=== PATIENT | female | born 1930 | race Hispanic/Latino ===

== ENCOUNTER 2016-06-26 12:26 | Emergency (ER) | payer MEDICARE, BC ==
[2016-06-26 12:39] VITALS: BP 161/60
--- OUTSIDE RECORDS SUMMARY | 2016-06-26 12:51 | XMS REPORT | Continuity of Care Document ---
:1930 Author Organization [facility] ([facility] Address [address] [place] [address] Phone [phone] Care Team Providers Name Role Phone Rosita Esparza Primary Care Provider [phone] Source Comments This disclosure is being made pursuant to the Care Everywhere program, applicable federal and state laws, and may not contain all informaitonavailable regarding this patient.[facility] ([facility]) Active Allergies and Adverse Reactions No Active Allergies Current Medications Not on file Active Problems Not on file Social History Tobacco Use Types Packs/Day Years Used Date Never Assessed Last Filed Vital Signs Vital Sign Reading Time Taken Blood Pressure 142/76 11/12/2006 9:43 AM CDT Pulse 64 11/12/2006 9:43 AM CDT Temperature 36.1 C (96.98 F) 09/25/2005 11:59 AM CDT Respiratory Rate 20 11/12/2006 9:43 AM CDT Height 1.57 m (5' 1.81") 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
[2016-06-26 13:14] LABS: Hematocrit 31.5 % (37.0-47.0); Hemoglobin 10.1 gm/dL (12.5-16.0); Mean Cell Volume 91.6 fl (78-100); Mean Corpuscular Hemoglobin 29.4 pg (27-31); Mean Corpuscular Hgb Conc 32.1 g/dl (32-36); Mean Platelet Volume 11.7 fl (6.0-9.5); Neutrophil # 5.5 K/mm3 (1.3-6.0); Neutrophil % 74.9 % (42-75.0); Platelet Count 168 K/mm3 (150-450); Red Blood Count 3.44 M/mm3 (4.2-5.4); Red Cell Distribution Width 14.4 % (11.5-14.0); White Blood Count 7.3 K/mm3 (4.0-10.5)
[2016-06-26 13:28] LABS: Albumin * 3.1 gm/dl (3.4-5.0); Anion Gap 12.6 mmol/L (6.8-13.8); BUN/Creatinine Ratio 17.7 (9.0-21.6); Bilirubin, Total 0.4 mg/dL (0.0-1.1); Ca. Corrected For Albumin 10.2 mg/dL (8.4-10.2); Calcium * 9.8 mg/dL (7.9-10.9); Carbon Dioxide 30.6 mmol/L (24-32.6); Potassium 4.2 mmol/L (3.4-4.6); Total Protein 7.3 gm/dL (6.2-8.2)
--- NOTE | 2016-06-26 13:37 | ERNOTE ---
Lower Extremity HPI - Narrative Date of Service: 06/26/16 - General Lower Extremities Pain: foot: left Time Seen by Provider: 06/26/16 12:43 Source: patient, family, RN notes reviewed, old records Exam Limitations: no limitations - Immun/Allergies/Home Medications Immunizations: IMMUNIZATION HX Immunizations Up to Date Yes History of Influenza Vaccine No Hx Pneumococcal Vaccination No Allergies/Adverse Reactions: Allergies Allergy/AdvReac Type Severity Reaction Status Date / Time acetaminophen [From [place]] AdvReac Verified 08/10/14 17:49 hydrocodone bitartrate AdvReac Verified 08/10/14 17:49 [From [place]] Home Medications: HOME MEDICATIONS Acetaminophen [Acetaminophen Extra Strength] 500 mg PO BID 11/11/13 [Last Taken Unknown] Furosemide [Lasix] 40 mg PO BID 11/11/13 [Last Taken Unknown] Gabapentin 300 mg PO HS 11/11/13 [Last Taken Unknown] Amiodarone HCl [Pacerone] 100 mg PO DAILY 04/07/14 [Last Taken Unknown] Aspirin/Calcium Carbonate/Mag [Aspirin Buffered 325 mg Tab] 325 mg PO DAILY [Last Taken Unknown] Calcium Carb & Citrate/Vit D3 [Calcium + D3 ER Tablet] 1 each PO DAILY 04/07/14 [Last Taken Unknown] Insulin Glargine,Hum.rec.anlog [Lantus] 15 units SQ HS 04/07/14 [Last Taken Unknown] Insulin Lispro [Humalog] 0 - 12 units SQ ACHS PRN 04/07/14 [Last Taken Unknown] Magnesium Hydroxide [Milk Of Magnesia] 30 ml PO BID PRN 04/07/14 [Last Taken Unknown] Potassium Chloride [Klor-Con M20] 20 meq PO BID 04/07/14 [Last Taken Unknown] Polyethylene Glycol 3350 [Miralax] 17 gm PO DAILY PRN 04/08/14 [Last Taken Unknown] Simvastatin [Zocor] 20 mg PO HS 04/08/14 [Last Taken Unknown] Cyanocobalamin [Vitamin B-12] 1,000 mcg PO DAILY #30 tablet 04/09/14 [Last Taken Unknown] Mirtazapine [Mirtazapine (Remeron)] 15 mg PO HS 04/09/14 [Last Taken Unknown] traMADol HCL [Ultram] 50 mg PO BID 11/24/14 [Last Taken Unknown] Famotidine [Pepcid AC] 20 mg PO HS 08/10/14 [Last Taken Unknown] LORazepam [Ativan] 0.25 mg PO HS 08/10/14 [Last Taken Unknown] Metoprolol Tartrate [Lopressor] 25 mg PO BID 08/10/14 [Last Taken Unknown] Sennosides/Docusate Sodium [Senokot-S] 1 tab PO BID 08/10/14 [Last Taken Unknown ] Clindamycin HCl [Cleocin HCl] 300 mg PO QID #40 capsule 06/26/16 [Last Taken Unknown] - History of Present Illness Narrative: Romy is an 85 year old female brought to the ED by a family member for increased swelling in her left for 3 days. She denies any injury, but has a history of a fracture in this foot approximately a year ago. The foot is also sore. She denies any fever, nausea, or malaise. Method of Injury: Reports: no apparent injury Prior Treament: Denies: recently seen, similar symptoms before, currently on antibiotics Review of Systems - Review of Systems Constitutional: Absent: recent illness, fever, chills, malaise EYE: Present: no symptoms reported ENT: Present: no symptoms reported Respiratory: Absent: shortness of breath, cough Cardiology: Present: edema. Absent: chest pain Gastrointestinal/Abdominal: Absent: nausea, vomiting Genitourinary: Present: no symptoms reported Musculoskeletal: Absent: joint pain, joint swelling Skin: Absent: rash, lesions, lumps Neurological: Present: numbness. Absent: headache, dizziness/light-headedness, weakness Endocrine: Present: no symptoms reported Hematologic/Lymphatic: Present: no symptoms reported Psych: Present: no symptoms reported - Patient's Past Medical History Patient History - Medical: Anemia, Chronic Pain, Diabetes Type 2 Insulin Dependent Patient History - Cardiac/Respiratory: Atrial Fibrillation, Coronary Heart Disease, CHF, Hypertension, Hyperlipidemia, Myocardial Infarction Patient History - Cancer: No Hx of Cancer Patient History - Surgical Procedures: Coronary Bypass Surgery, Hysterectomy, Pacemaker, T & A, Other Patient History - Other: None LMP (females 10-50): Menopausal - Social History Living Situations: home Abuse History: No History of abuse Psych History: No pertinent hx Smoking Status: Former smoker Alcohol Use: none Drug Use: none - Immunizations Immunizations Up to Date: Yes Hx Pneumococcal Vaccination: No History of Influenza Vaccine: No Physical Exam - Physical Exam General Appearance: Present: wd/wn, alert, no apparent distress Neck: Present: normal inspection, nontender, supple Respiratory: Present: no respiratory distress, normal breath sounds, no accessory muscle use, lungs clear Cardiovascular/Chest: Present: regular rate, rhythm, no murmur. Absent: normal peripheral pulses Peripheral Pulses: N=norm/S=strong/W=weak/B=bound/A=absent: Dorsalis-pedis (R): Weak, Dorsalis-pedis (L): Weak Extremity Exam: Present: normal range of motion, pedal edema - bilaterally, worse on left, extremity edema - to mid-calf, worse on left, other - left tender coordinator to palpation. Absent: calf tenderness, joint redness, joint swelling Neurological Exam: Present: alert, oriented, normal mood/affect, no motor/ sensory deficits Skin Exam: Present: warm/dry, other - erythema to dorsum of left foot, skin dry and scaley but appears to be intact ED Progress - Results and Orders Patient's Lab Results:: I have reviewed the patient's lab results. - Vital Signs Patient's Vital Signs:: I have reviewed the patient's vital signs. Vital Signs: Vital Signs 06/26/16 12:33 Temperature 36.6 C Pulse Rate 60 Respiratory 16 Rate Blood Pressure 161/60 O2 Sat by Pulse 97 Oximetry - X-Ray X-Ray #1 X-Ray: foot - Left Interpretation: Reviewed by me X-ray Comments: No acute osseous abnormality noted - Progress/Reassessment Chief Complaint: Lower Extremity Pain/ Injury Progress:: Unchanged Departure Clinical Impression: Cellulitis of left foot - Departure Disposition: Home Follow Up Needed Condition: Stable Instructions: Cellulitis, Adult, [id number] Additional Instructions: Elevate foot whenever possible Heat to swollen area may help Continue your current medications Return for fever, vomiting, or other concerns Referrals: Elia Marcos MD [Primary Care Provider] - Prescriptions: Clindamycin HCl [Cleocin HCl] 300 mg PO QID #40 capsule
== END 2016-06-26 14:12 | disposition home or self-care (01) ==
LOC: ER 12:26
DX: L03.116 Cellulitis of left lower limb (principal); Z87.891 Personal history of nicotine dependence

== ENCOUNTER 2016-10-05 12:23 | Observation (INO) | payer MEDICARE, BC ==
--- NOTE | 2016-10-05 12:51 | ERNOTE ---
Medical Problem HPI - Narrative Date of Service: 10/05/16 - General Chief Complaint: General Assessment Time Seen by Provider: 10/05/16 12:48 - Immun/Allergies/Home Medications Immunizations: IMMUNIZATION HX Immunizations Up to Date Yes History of Influenza Vaccine Yes Hx Pneumococcal Vaccination No Allergies/Adverse Reactions: Allergies acetaminophen [From [place]] Adverse Reaction (Verified 10/05/16 12:56) Makes weak, and "tipsy" hydrocodone bitartrate [From [place]] Adverse Reaction (Verified 10/05/16 12:56) Makes weak, and "tipsy" Home Medications: HOME MEDICATIONS Acetaminophen [Acetaminophen Extra Strength] 500 mg PO BID 11/11/13 [Last Taken Unknown] Furosemide [Lasix] 40 mg PO BID 11/11/13 [Last Taken Unknown] Gabapentin 300 mg PO HS 11/11/13 [Last Taken Unknown] Amiodarone HCl [Pacerone] 100 mg PO DAILY 04/07/14 [Last Taken Unknown] Aspirin/Calcium Carbonate/Mag [Aspirin Buffered 325 mg Tab] 325 mg PO DAILY [Last Taken Unknown] Insulin Glargine,Hum.rec.anlog [Lantus] 15 units SQ HS 04/07/14 [Last Taken Unknown] Insulin Lispro [Humalog] 0 - 12 units SQ ACHS PRN 04/07/14 [Last Taken Unknown] Potassium Chloride [Klor-Con M20] 10 meq PO BID 04/07/14 [Last Taken Unknown] Simvastatin [Zocor] 20 mg PO HS 04/08/14 [Last Taken Unknown] Cyanocobalamin [Vitamin B-12] 1,000 mcg PO DAILY #30 tablet 04/09/14 [Last Taken Unknown] Mirtazapine [Mirtazapine (Remeron)] 15 mg PO HS 04/09/14 [Last Taken Unknown] traMADol HCL [Ultram] 50 mg PO Q4H PRN 04/09/14 [Last Taken Unknown] LORazepam [Ativan] 0.25 mg PO HS 08/10/14 [Last Taken Unknown] Metoprolol Tartrate [Lopressor] 25 mg PO BID 08/10/14 [Last Taken Unknown] Sennosides/Docusate Sodium [Senokot-S] 1 tab PO BID 08/10/14 [Last Taken Unknown ] - History of Present History Narrative: Patient reports onset of left arm swelling for 1 day. Daughter reports in family and patient having troubles coping. Daughter reports patient not eating well for past 2 weeks. Daughter reports onset of fruity smelling and cloudy urine. Pt. youngest son on wednesday and she does not want to eat...she is on ativan for her anxiety but nothing for depression. Pt. denies any recent injury. Review of Systems - Review of Systems Constitutional: Present: weakness, fatigue, malaise, decreased activity level. Absent: recent illness, fever, chills, diaphoresis EYE: Present: no symptoms reported ENT: Present: no symptoms reported Respiratory: Present: no symptoms reported. Absent: shortness of breath, cough , wheezing Cardiology: Present: no symptoms reported. Absent: chest pain, palpitations, edema Gastrointestinal/Abdominal: Present: eating less, drinking less. Absent: nausea , vomiting, diarrhea, abdominal pain Genitourinary: Present: no symptoms reported Musculoskeletal: Present: muscle pain - L upper arm L lower arm hand, joint pain - L upper arm including elbow. Absent: back pain Skin: Present: no symptoms reported. Absent: change in color Neurological: Present: anxiety, depressed, emotional problems Endocrine: Present: other - sweet smelling urine All Other Systems: All systems neg except as marked - Patient's Past Medical History Patient History - Medical: Anemia, Chronic Pain, Diabetes Type 2 Insulin Dependent Patient History - Cardiac/Respiratory: Atrial Fibrillation, Coronary Heart Disease, CHF, Hypertension, Hyperlipidemia, Myocardial Infarction Patient History - Cancer: No Hx of Cancer Patient History - Surgical Procedures: Coronary Bypass Surgery, Hysterectomy, Pacemaker, T & A, Other Patient History - Other: None LMP (females 10-50): Menopausal - Social History Living Situations: home Abuse History: No History of abuse Psych History: No pertinent hx Alcohol Use: none Drug Use: none - Immunizations Immunizations Up to Date: Yes Hx Pneumococcal Vaccination: No History of Influenza Vaccine: Yes Physical Exam - Physical Exam General Appearance: Present: wd/wn, alert, no apparent distress Eye Exam: Normal inspection: bilateral, PERRL: bilateral, EOMI: bilateral Ears, Nose, Throat: Present: normal ENT inspection, normal pharynx Neck: Present: normal inspection, nontender. Absent: lymphadenopathy (R), lymphadenopathy (L) Respiratory: Present: no respiratory distress, normal breath sounds, no accessory muscle use, chest nontender, lungs clear Cardiovascular/Chest: Present: regular rate, rhythm, no murmur, normal peripheral pulses Gastrointestinal/Abdominal: Present: normal bowel sounds, nontender, nondistended, soft, no organomegaly Back Exam: Present: normal inspection, normal range of motion, no CVA tenderness , no vertebral tenderness Extremity Exam: Present: extremity edema - LUE and LLE, other - LUE pain from proximal of elbow to fingertips. Absent: calf tenderness, bony tenderness Neurological Exam: Present: alert, oriented, no motor/sensory deficits, motor weakness - generalized, other - depressed and detached affect Skin Exam: Present: warm/dry, pallor, other - redness L arm near elbow. Absent : skin rash ED Progress - Date and Time Seen: Date and Time: 10/05/16 15:[address] Marcos and he and I both feel that pt. needs observation admission for careful rehydration and treatment of CHF and to rule out WI. Although the elevated troponin is more likely CHF and less likely WI - Vital Signs Patient's Vital Signs:: I have reviewed the patient's vital signs. Vital Signs: Vital Signs 10/05/16 12:37 Temperature 37.0 C Pulse Rate 60 Respiratory 24 H Rate Blood Pressure 159/64 O2 Sat by Pulse 100 Oximetry - EKG EKG: other - V paced EKG read: Reviewed by me EKG Comments: Interpreted by Dr Nguyen - X-Ray X-Ray #1 X-Ray: chest Interpretation: Reviewed by me X-ray Comments: chronic sclerotic changes and vascular congestion, no acute - CT/Ultrasound CT/Ultrasound Narrative: US negative for DVT - Progress/Reassessment Chief Complaint: General Assessment Departure - Departure Clinical Impression: Elevated troponin Congestive heart failure (CHF) Qualifiers: Congestive heart failure type: unspecified congestive heart failure type Congestive heart failure chronicity: acute on chronic Qualified Code(s): I50.9 - Heart failure, unspecified Gout Qualifiers: Gout etiology: unspecified cause Laterality: left Chronicity: acute Referrals: Elia Marcos MD [Primary Care Provider] -
--- OUTSIDE RECORDS SUMMARY | 2016-10-05 13:03 | XMS REPORT | Continuity of Care Document ---
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
[2016-10-05 13:30] LABS: Urine Bilirubin Negative (NEGATIVE); Urine Blood 25 /ul (NEGATIVE); Urine Ketone Negative (NEGATIVE); Urine Protein Negative (NEGATIVE); Urine Urobilinogen Normal (NORMAL)
[2016-10-05 13:31] LABS: Hemoglobin 11.3 gm/dL (12.5-16.0); Mean Cell Volume 92.3 fl (78-100); Mean Corpuscular Hgb Conc 31.4 g/dl (32-36); Platelet Count 238 K/mm3 (150-450); Red Cell Distribution Width 14.6 % (11.5-14.0); White Blood Count 7.5 K/mm3 (4.0-10.5)
[2016-10-05 13:39] LABS: Total Cells Counted 100; Urine Appearance Turbid; Urine Bacteria 4+; Urine Color Yellow; Urine Nitrite Positive (NEGATIVE); Urine RBC 0-5 /hpf (0-5); Urine WBC 25-50 /hpf (0-5)
[2016-10-05 13:43] LABS: Atypical (Reactive) Lymph 1 % (0-2); Eosinophil 1 % (0-3); Lymphocyte 20 % (20-51); Monocyte 2 % (0-9); Neutrophil 76 % (42-75); Neutrophil # 5.7 K/mm3 (1.3-6.0); Platelet Estimate Normal (NORMAL); RBC Morphology Normal (NORMAL)
[2016-10-05 13:44] LABS: ALT 17 U/L (19-67); AST 21 U/L (0-48); Albumin * 3.3 gm/dl (3.4-5.0); Alkaline Phosphatase * 117 U/L (50-170); Anion Gap 15.4 mmol/L (6.8-13.8); BNP * 2637 pg/mL (5-550); BUN/Creatinine Ratio 15.6 (9.0-21.6); Bilirubin, Total 0.6 mg/dL (0.0-1.1); Blood Urea Nitrogen 21 mg/dL (3-23); Ca. Corrected For Albumin 10.8 mg/dL (8.4-10.2); Calcium * 10.6 mg/dL (7.9-10.9); Chloride 103 mmol/L (97-106); Glucose * 104 mg/dL (70-110); Potassium 4.4 mmol/L (3.4-4.6); Sodium 143 mmol/L (132-142); Uric Acid 10.6 mg/dL (2.6-7.2)
[2016-10-05] MEDS ORDERED: FUROSEMIDE 10 MG/ML VIAL IV ONE (15:54)
--- OUTSIDE RECORDS SUMMARY | 2016-10-05 15:54 | XMS REPORT | Continuity of Care Document ---
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
[2016-10-05] MEDS ORDERED: NORMAL SALINE 1,000 ML IV ONE (15:55)
[2016-10-05] MEDS ORDERED: ALLOPURINOL 100 MG TABLET PO SCH (16:00)
[2016-10-05] MEDS ORDERED: CIPROFLOXACIN LACTATE IV SCH (16:00)
[2016-10-05] MEDS ORDERED: D5W IV SCH (16:00)
[2016-10-05] MEDS ORDERED: ENOXAPARIN SODIUM 30 MG/0.3 ML SYRG SC SCH (17:00)
[2016-10-05] MEDS ORDERED: ALPRAZolam 0.25 MG TABLET PO PRN (17:01)
[2016-10-05] MEDS ORDERED: traMADol HCL 50 MG TABLET PO PRN (17:01)
[2016-10-05 17:16] LABS: Prothrombin Time (Patient) 10.9 Seconds (9.4-11.4)
[2016-10-05 17:18] LABS: INR 1.05 INR (0.90-1.10); Partial Thrombolplastin Time 28.3 Seconds (24-32)
[2016-10-05 17:26] LABS: CRP 6.7 mg/dL (0.0-0.9)
[2016-10-05] MEDS: predniSONE 20 MG TABLET PO SCH (20:41)
[2016-10-05] MEDS: METOPROLOL TARTRATE 25 MG TABLET PO SCH (20:44)
[2016-10-05] MEDS: SENNOSIDES/DOCUSATE SODIUM 1 TAB TABLET PO SCH (20:44)
[2016-10-05] MEDS: ACETAMINOPHEN 500 MG TABLET PO SCH (20:45)
[2016-10-05] MEDS ORDERED: POTASSIUM CHLORIDE 10 MEQ TABLET.SA PO SCH (21:00)
[2016-10-05] MEDS ORDERED: INSULIN GLARGINE,HUM.REC.ANLOG 100 UNITS/ML VIAL SC SCH ×2 (21:00→21:25)
[2016-10-05] MEDS ORDERED: MIRTAZAPINE 15 MG TABLET PO SCH (21:00)
[2016-10-05] MEDS ORDERED: GABAPENTIN 300 MG CAPSULE PO SCH (21:00)
[2016-10-05] MEDS ORDERED: FUROSEMIDE 40 MG TABLET PO SCH (21:00)
[2016-10-05] MEDS ORDERED: INSULIN LISPRO 100 UNITS/ML VIAL ONE (21:36)
[2016-10-05] MEDS: SACCHAROMYCES BOULARDII 250 MG CAPSULE PO SCH (21:37)
[2016-10-05] MEDS: INSULIN LISPRO 100 UNITS/ML VIAL SC SCH (21:37)
--- NOTE | 2016-10-05 21:40 | HP ---
Chief Complaint - Chief Complaint Date of Service: 10/05/16 Time of Service: 17:10 Chief Complaint: weakness, left arm pain, left leg pain. History of Present Illness: Romy is an 86 year old female patient of Dr Wadsworth with a PMH of CAD (s/p CABG 01/2014), afib (on amiodarone, history of MAZE procedure), Bi-V pacemaker, DM, HTN, HLD who presented to the ER with c/o weakness. close family member on wednesday. ER eval revealed wbc wnl with 76% neutrophils, NA+ 143, creatinine 143, BNP 2637, troponin 0.2, UA positive for infection (+blood, + nitrate, 500 leuk esterase, 25-50 wbc, 4+ bacteria). pt denied any cp or angina equivalent symptoms. admits to very poor oral intake for past 4 days. uric acid elevated at 10.6 with no history gout. c/o left arm pain from elbow to wrist. c/o left leg pain and swelling from left knee down. left arm doppler negative for dvt. chest xray neg for acute abnormality. pt will be admitted for uti, weakness, elevated troponin with history cad. - Patient's Past Medical History Patient History - Medical: Anemia, Chronic Pain, Diabetes Type 2 Insulin Dependent Patient History - Cardiac/Respiratory: Atrial Fibrillation, Coronary Heart Disease, CHF, Hypertension, Hyperlipidemia, Myocardial Infarction Patient History - Cancer: No Hx of Cancer Patient History - Surgical Procedures: Coronary Bypass Surgery, Hysterectomy, Pacemaker, T & A, Other Patient History - Other: None LMP (females 10-50): Menopausal - Family History Mother Family History - Medical: Family History - Cardiac/Respiratory: No pertinent hx Family History - Cancer: No pertinent family hx Father Family History - Medical: Family History - Cardiac/Respiratory: Cardiac Arrest, Myocardial Infarction Family History - Cancer: No pertinent family hx - Social History Living Situations: spouse Abuse History: No History of abuse Psych History: No pertinent hx Smoking Status: Never smoker Have you smoked in the past 12 months: No Do you dip or chew tobacco: No Patient requests Smoking Cessation Consult: No Initiate information on Smoking Cessation: No Alcohol Use: none Drug Use: none - Immunizations Immunizations Up to Date: Yes Hx Pneumococcal Vaccination: No History of Influenza Vaccine: Yes Review Of Systems (GEN) - Review of Systems Generalized/Overall Review: Present: Weakness, Fatigue. Absent: Chills, Fever EENTM: Present: No Symptoms Reported Respiratory: Present: No Symptoms Reported Cardiac: Present: Edema - left knee Abdominal: Present: No Symptoms Reported Genitourinary: Present: Frequency Musculoskeletal: Present: Joint Pain, Joint Swelling, Muscle Pain Neurological: Present: No Symptoms Reported Skin: Present: No Symptoms Reported Endocrine: Present: No Symptoms Reported Misc: All systems neg except as marked Immunizations: IMMUNIZATION HX Immunizations Up to Date Yes History of Influenza Vaccine Yes Hx Pneumococcal Vaccination No Allergies/Adverse Reactions: Allergies Allergy/AdvReac Type Severity Reaction Status Date / Time acetaminophen [From [email or web address]] AdvReac Verified 10/05/16 12:56 hydrocodone bitartrate AdvReac Verified 10/05/16 12:56 [From [email or web address]] Home Medications: HOME MEDICATIONS Acetaminophen [Acetaminophen Extra Strength] 500 mg PO BID 11/11/13 [Last Taken Unknown] Furosemide [Lasix] 40 mg PO BID 11/11/13 [Last Taken Unknown] Gabapentin 300 mg PO HS 11/11/13 [Last Taken Unknown] Amiodarone HCl [Pacerone] 100 mg PO DAILY 04/07/14 [Last Taken Unknown] Aspirin/Calcium Carbonate/Mag [Aspirin Buffered 325 mg Tab] 325 mg PO DAILY [Last Taken Unknown] Insulin Glargine,Hum.rec.anlog [Lantus] 15 units SQ HS 04/07/14 [Last Taken Unknown] Insulin Lispro [Humalog] 0 - 12 units SQ ACHS PRN 04/07/14 [Last Taken Unknown] Potassium Chloride [Klor-Con M20] 10 meq PO BID 04/07/14 [Last Taken Unknown] Simvastatin [Zocor] 20 mg PO HS 04/08/14 [Last Taken Unknown] Cyanocobalamin [Vitamin B-12] 1,000 mcg PO DAILY #30 tablet 04/09/14 [Last Taken Unknown] Mirtazapine [Mirtazapine (Remeron)] 15 mg PO HS 04/09/14 [Last Taken Unknown] traMADol HCL [Ultram] 50 mg PO Q4H PRN 04/09/14 [Last Taken Unknown] Metoprolol Tartrate [Lopressor] 25 mg PO BID 08/10/14 [Last Taken Unknown] Sennosides/Docusate Sodium [Senokot-S] 1 tab PO BID 08/10/14 [Last Taken Unknown ] Alprazolam [Xanax] 0.25 mg PO PRN PRN 10/05/16 [Last Taken Unknown] Calcium Carbonate/Vitamin D3 [Calcium 600 + D3 Softgel] 1 each PO DAILY [Last Taken Unknown] Exam - Exam Vital Signs: Vital Signs - Last Taken Temp 36.4 C L 10/05/16 19:48 Pulse 60 10/05/16 20:44 Resp 18 10/05/16 19:48 BP 165/51 10/05/16 20:44 Pulse Ox 95 10/05/16 19:48 Constitutional: Present: Alert, Cooperative, No distress ENT Exam: Present: hearing grossly normal Eye Exam: bilateral eye: normal inspection Neck: Present: full range of motion, supple Back Exam: Present: no vertebral tenderness Breasts: Present: Exam deferred Respiratory: Present: chest non-tender, lungs clear, normal breath sounds, no respiratory distress Cardiovascular/Chest: Present: regular rate, rhythm, no chest tenderness, no JVD Peripheral Pulses: carotid (R): 2+, carotid (L): 2+, radial (R): 2+, radial (L) : 2+ Abdomen: Present: soft, nontender, nondistended /Rectal: Present: Exam deferred Extremity: Present: no pedal edema, no calf tenderness, lower extremity edema - left leg from knee to above left ankle Skin Exam: Present: warm/dry, no cyanosis Diagnostic Studies: Abnormal Lab Results 10/05/16 10/05/16 10/05/16 Range/Units 17:10 17:10 19:35 ESR 92 H (0-15) mm/hr Lactate Dehydrogenase 235 H (81-234) U/L Troponin I 0.180 H* (0.00-0.10) ng/ml C-Reactive Prot, Quant 6.7 H (0.0-0.9) mg/dL Laboratory Results WBC 7.5 K/mm3 (4.0-10.5) 10/05/16 13:18 RBC 3.90 M/mm3 (4.2-5.4) L 10/05/16 13:18 Hgb 11.3 gm/dL (12.5-16.0) L 10/05/16 13:18 Hct 36.0 % (37.0-47.0) L 10/05/16 13:18 MCV 92.3 fl (78-100) 10/05/16 13:18 MCH 29.0 pg (27-31) 10/05/16 13:18 MCHC 31.4 g/dl (32-36) L 10/05/16 13:18 RDW 14.6 % (11.5-14.0) H 10/05/16 13:18 Plt Count 238 K/mm3 (150-450) 10/05/16 13:18 Neutrophils % (Manual) 76 % (42-75) H 10/05/16 13:18 Lymphocytes % (Manual) 20 % (20-51) 10/05/16 13:18 Monocytes % (Manual) 2 % (0-9) 10/05/16 13:18 Eosinophils % (Manual) 1 % (0-3) 10/05/16 13:18 Neutrophils # (Manual) 5.7 K/mm3 (1.3-6.0) 10/05/16 13:18 Lymphocytes # (Manual) 1.5 k/mm3 (1.5-3.5) 10/05/16 13:18 Monocytes # (Manual) 0.2 k/mm3 (0.0-1.0) 10/05/16 13:18 Eosinophils # (Manual) 0.1 k/mm3 (0.0-0.7) 10/05/16 13:18 Atypic/Reactive Lymphs 1 % (0-2) 10/05/16 13:18 Platelet Estimate Normal (NORMAL) 10/05/16 13:18 RBC Morphology Normal (NORMAL) 10/05/16 13:18 ESR 92 mm/hr (0-15) H 10/05/16 17:10 PT 10.9 Seconds (9.4-11.4) 10/05/16 13:18 INR (Anticoag Therapy) 1.05 INR (0.90-1.10) 10/05/16 13:18 PTT ([place]) 28.3 Seconds (24-32) 10/05/16 13:18 Sodium 143 mmol/L (132-142) H 10/05/16 13:18 Plasma Sodium 143 mmol/L (130-142) H 10/05/16 13:18 Potassium 4.4 mmol/L (3.4-4.6) 10/05/16 13:18 Chloride 103 mmol/L (97-106) 10/05/16 13:18 Carbon Dioxide 29.0 mmol/L (24-32.6) 10/05/16 13:18 Anion Gap 15.4 mmol/L (6.8-13.8) H 10/05/16 13:18 BUN 21 mg/dL (3-23) 10/05/16 13:18 Creatinine 1.35 mg/dL (0.4-1.4) 10/05/16 13:18 Est GFR (Non-Af Amer) 40 mL/min (60-130) L D 10/05/16 13:18 BUN/Creatinine Ratio 15.6 (9.0-21.6) 10/05/16 13:18 Random Glucose 104 mg/dL (70-110) 10/05/16 13:18 Uric Acid 10.6 mg/dL (2.6-7.2) H 10/05/16 13:18 Calcium 10.6 mg/dL (7.9-10.9) 10/05/16 13:18 Calcium Adj for Albumin 10.8 mg/dL (8.4-10.2) H 10/05/16 13:18 Total Bilirubin 0.6 mg/dL (0.0-1.1) 10/05/16 13:18 AST 21 U/L (0-48) 10/05/16 13:18 ALT 17 U/L (19-67) L 10/05/16 13:18 Alkaline Phosphatase 117 U/L (50-170) 10/05/16 13:18 Lactate Dehydrogenase 235 U/L (81-234) H 10/05/16 17:10 Troponin I 0.180 ng/ml (0.00-0.10) H* 10/05/16 19:35 C-Reactive Prot, Quant 6.7 mg/dL (0.0-0.9) H 10/05/16 17:10 B-Natriuretic Peptide 2637 pg/mL (5-550) H 10/05/16 13:18 Total Protein 8.0 gm/dL (6.2-8.2) 10/05/16 13:18 Albumin 3.3 gm/dl (3.4-5.0) L 10/05/16 13:18 Urine Color Yellow 10/05/16 13:18 Urine Appearance Turbid 10/05/16 13:18 Urine pH 6.0 pH (5.0-7.0) 10/05/16 13:18 Ur Specific [place] 1.010 SP.GR. (1.005-1.010) 10/05/16 13:18 Urine Protein Negative mg/dL (NEGATIVE) 10/05/16 13:18 Urine Glucose (UA) Negative mg/dL (NEGATIVE) 10/05/16 13:18 Urine Ketones Negative mg/dL (NEGATIVE) 10/05/16 13:18 Urine Blood 25 /ul (NEGATIVE) H 10/05/16 13:18 Urine Nitrate Positive (NEGATIVE) H 10/05/16 13:18 Urine Bilirubin Negative mg/dl (NEGATIVE) 10/05/16 13:18 Urine Urobilinogen Normal EU/dl (NORMAL) 10/05/16 13:18 Ur Leukocyte Esterase 500 /ul (NEGATIVE) H 10/05/16 13:18 Urine RBC 0-5 /hpf (0-5) 10/05/16 13:18 Urine WBC 25-50 /hpf (0-5) H 10/05/16 13:18 Ur Epithelial Cells None seen /hpf (0-5) 10/05/16 13:18 Urine Bacteria 4+ (NONE) H 10/05/16 13:18 Urine Culture Comments Culture to follow 10/05/16 13:18 Serum Ketones Negative (NEGATIVE) 10/05/16 13:18 Assessment/Plan - Narrative Narrative: UTI - 4+ bacteria, significant infection - urine culture pending - await final culture - Rocephin 1 gm iv daily - Day #1 - encourage oral intake - add probiotics. elevated uric acid - unsure of cause, no history of gout - check xray of left elbow, left knee and left wrist - check ESR, crp and LD - is ESR significantly elevated will start on: - prednisone 40 mg daily for 5 days Left lower left swelling - check venous doppler of leg as a precaution weakness - due to VERY poor oral intake due to recent family - consult PT/OT - encourage oral intake - IV fluids at 100 ml / hour - gentle hydration - bnp elevated on labs due to CRF not due to CHF. - boost or ensure supplement TID. afib, chronic - currently on amiodarone - unable to check if in sinus rhythm due to paced rhythm. - not on anticoagulation currently - monitor for now. CAD - significant cardiac history, including history of NSTEMI and CABG. - trend trop with ekg. 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 DM - cont lantus home dose - humalog sliding scale insulin as needed Other Chronic Conditions: - HTN, stable - HLD, stable. - Chronic renal failure, stage 2 Code status: Full Code VTE: lovenox GI Proph: protonix po - Assessment/Plan (1) UTI (urinary tract infection) Problem: Acute Qualifiers: Urinary tract infection type: acute cystitis Hematuria presence: with hematuria Qualified Code(s): N30.01 - Acute cystitis with hematuria (2) Elevated uric acid in blood Problem: Acute (3) Weakness generalized Problem: Acute (4) Left leg swelling Problem: Acute (5) Left arm pain Problem: Acute (6) Diabetes Problem: Chronic Qualifiers: Diabetes mellitus type: type 2 Diabetes mellitus complication status: with hyperglycemia Diabetes mellitus truck terminal manager insulin use: with truck terminal manager use Qualified Code(s): E11.65 - Type 2 diabetes mellitus with hyperglycemia; Z79.4 - watermaster (current) use of insulin (7) Afib Problem: Chronic Qualifiers: Atrial fibrillation type: chronic Qualified Code(s): I48.2 - Chronic atrial fibrillation (8) CAD (coronary artery disease) Problem: Chronic Qualifiers: Coronary Disease-Associated Artery/Lesion type: [place] artery [place] vs. transplanted heart: [place] heart Associated angina: angina presence unspecified Qualified Code(s): I25.10 - Atherosclerotic heart disease of [place] coronary artery without angina pectoris (9) History of coronary artery bypass graft Problem: Chronic (10) History of non-ST elevation myocardial infarction (NSTEMI) Problem: Chronic (11) HTN (hypertension) Problem: Chronic Qualifiers: Hypertension type: essential hypertension Qualified Code(s): I10 - Essential (primary) hypertension (12) HLD (hyperlipidemia) Problem: Chronic Qualifiers: Hyperlipidemia type: unspecified Qualified Code(s): E78.5 - Hyperlipidemia , unspecified (13) CRF (chronic renal failure) Problem: Chronic Qualifiers: Chronic kidney disease stage: stage 2 (mild) Qualified Code(s): N18.2 - Chronic kidney disease, stage 2 (mild) (14) Elevated troponin Problem: Acute
[2016-10-06] MEDS ORDERED: NORMAL SALINE 1,000 ML IV PRN (02:10)
[2016-10-06 06:14] LABS: Anion Gap 13.2 mmol/L (6.8-13.8); BUN/Creatinine Ratio 16.3 (9.0-21.6); Calcium * 9.4 mg/dL (7.9-10.9); Carbon Dioxide 26.2 mmol/L (24-32.6); Estimated Creat Clear 23.7; Potassium 4.4 mmol/L (3.4-4.6)
[2016-10-06 06:36] LABS: Hemoglobin 9.5 gm/dL (12.5-16.0); Mean Cell Volume 92.3 fl (78-100); Mean Corpuscular Hemoglobin 29.2 pg (27-31); Mean Corpuscular Hgb Conc 31.7 g/dl (32-36); Platelet Count 200 K/mm3 (150-450); Red Blood Count 3.25 M/mm3 (4.2-5.4); Red Cell Distribution Width 14.6 % (11.5-14.0); White Blood Count 5.9 K/mm3 (4.0-10.5)
[2016-10-06] MEDS: INSULIN LISPRO 100 UNITS/ML VIAL SC SCH ×2 (06:43→11:57)
[2016-10-06 06:45] VITALS: BP 137/56
[2016-10-06 06:53] LABS: Total Cells Counted 100
[2016-10-06] MEDS ORDERED: PANTOPRAZOLE SODIUM 40 MG TABLET.EC PO SCH (07:00)
[2016-10-06 07:07] LABS: Band 2 % (0-2.0); Lymphocyte 9 % (20-51); Monocyte 3 % (0-9); Neutrophil 86 % (42-75); Neutrophil # 5.1 K/mm3 (1.3-6.0); Platelet Estimate Normal (NORMAL)
[2016-10-06 07:08] LABS: RBC Morphology Normal (NORMAL)
[2016-10-06] MEDS ORDERED: AMIODARONE HCL 200 MG TABLET PO SCH (09:00)
[2016-10-06] MEDS ORDERED: ASPIRIN 325 MG TABLET.DR PO SCH (09:00)
[2016-10-06] MEDS ORDERED: CYANOCOBALAMIN 1,000 MCG TABLET PO SCH (09:00)
[2016-10-06] MEDS ORDERED: CALCIUM CARBONATE/VITAMIN D3 1 TAB TABLET PO SCH (09:00)
[2016-10-06] MEDS: ACETAMINOPHEN 500 MG TABLET PO SCH (09:25)
[2016-10-06] MEDS: METOPROLOL TARTRATE 25 MG TABLET PO SCH (09:25)
[2016-10-06] MEDS: predniSONE 20 MG TABLET PO SCH (09:25)
[2016-10-06] MEDS: SACCHAROMYCES BOULARDII 250 MG CAPSULE PO SCH (09:25)
[2016-10-06] MEDS: SENNOSIDES/DOCUSATE SODIUM 1 TAB TABLET PO SCH (09:25)
--- NOTE | 2016-10-06 12:06 | CONS ---
[facility] - General Date of Service: 10/06/16 Narrative: Romy is an 86 year old female patient of Dr Wadsworth with a PMH of CAD (s/p CABG 01/2014), afib (on amiodarone, history of MAZE procedure), Bi-V pacemaker, DM, HTN, HLD who presented to the ER with c/o weakness. Work up in the ED revealed elevated troponin, UTI, and complaints of L elbow and wrist pain, and some LLE swelling. Further workup revealed an elevated uric acid and doppler U/ S of the LLE was negative. Upon my evaluation, the patient denies L knee pain or any pain in the LLE. Her biggest complaint is R elbow and wrist pain. She denies any traumatic incident and states the pain started out of the blue. She denies fever or chills. Source: patient - History of Present Illness Allergies/Adverse Reactions: Allergies acetaminophen [From [employer]] Adverse Reaction (Verified 10/05/16 12:56) Makes weak, and "tipsy" hydrocodone bitartrate [From [employer]] Adverse Reaction (Verified 10/05/16 12:56) Makes weak, and "tipsy" Home Medications: Home Medications Medication Instructions Recorded Last Taken Acetaminophen [Acetaminophen Extra 500 mg PO BID 11/11/13 Unknown Strength] Furosemide [Lasix] 40 mg PO BID 11/11/13 Unknown Gabapentin 300 mg PO HS 11/11/13 Unknown Amiodarone HCl [Pacerone] 100 mg PO DAILY 04/07/14 Unknown Aspirin/Calcium Carbonate/Mag 325 mg PO DAILY 04/07/14 Unknown [Aspirin Buffered 325 mg Tab] Insulin Glargine,Hum.rec.anlog 15 units SQ HS 04/07/14 Unknown [Lantus] Insulin Lispro [Humalog] 0 - 12 units SQ ACHS PRN 04/07/14 Unknown Potassium Chloride [Klor-Con M20] 10 meq PO BID 04/07/14 Unknown Simvastatin [Zocor] 20 mg PO HS 04/08/14 Unknown Mirtazapine [Mirtazapine (Remeron)] 15 mg PO HS 04/09/14 Unknown traMADol HCL [Ultram] 50 mg PO Q4H PRN 04/09/14 Unknown Metoprolol Tartrate [Lopressor] 25 mg PO BID 08/10/14 Unknown Sennosides/Docusate Sodium 1 tab PO BID 08/10/14 Unknown [Senokot-S] Alprazolam [Xanax] 0.25 mg PO PRN PRN 10/05/16 Unknown Calcium Carbonate/Vitamin D3 1 each PO DAILY 10/05/16 Unknown [Calcium 600 + D3 Softgel] - Patient's Past Medical History Patient History - Medical: Anemia, Chronic Pain, Diabetes Type 2 Insulin Dependent Patient History - Cardiac/Respiratory: Atrial Fibrillation, Coronary Heart Disease, CHF, Hypertension, Hyperlipidemia, Myocardial Infarction Patient History - Cancer: No Hx of Cancer Patient History - Surgical Procedures: Coronary Bypass Surgery, Hysterectomy, Pacemaker, T & A, Other Patient History - Other: None LMP (females 10-50): Menopausal - Family History Mother Family History - Medical: Family History - Cardiac/Respiratory: No pertinent hx Family History - Cancer: No pertinent family hx Father Family History - Medical: Family History - Cardiac/Respiratory: Cardiac Arrest, Myocardial Infarction Family History - Cancer: No pertinent family hx - Social History Living Situations: spouse Abuse History: No History of abuse Psych History: No pertinent hx Smoking Status: Never smoker Have you smoked in the past 12 months: No Do you dip or chew tobacco: No Patient requests Smoking Cessation Consult: No Initiate information on Smoking Cessation: No Alcohol Use: none Drug Use: none - Immunizations Immunizations Up to Date: Yes Hx Pneumococcal Vaccination: No History of Influenza Vaccine: Yes Procedures AFTER-CATAR DISCISSION (03/16/00) CATARAC PHACOEMULS/ASPIR (11/24/05) CYSTOCELE REPAIR (07/16/08) DPT ADMINISTRATION (02/28/11) DRAINAGE OF BLADDER, VIA NATURAL OR ARTIFICIAL OPENING (10/05/16) INSERT LENS AT CATAR EXT (11/24/05) OTH REMOVE BOTH OVARIES/TUBES (07/16/08) OTHER AND UNSPECIFIED VAGINAL HYSTERECTOMY (07/16/08) Medications - Medications Current Medications: Current Medications Acetaminophen (Tylenol) 500 mg PO BID [facility] Stop: 11/04/16 21:01 Last Admin: 10/06/16 09:25 Dose: 500 mg Amiodarone HCl (Cordarone) 100 mg PO DAILY [facility] Stop: 11/05/16 09:01 Last Admin: 10/06/16 09:24 Dose: 100 mg Aspirin (Aspirin Enteric Coated) 325 mg PO DAILY [facility] Stop: 11/05/16 09:01 Last Admin: 10/06/16 09:24 Dose: 325 mg Calcium/Vitamin D (Calcarb 600 With Vitamin D) 1 tab PO DAILY [facility] Stop: 11/05/16 09:01 Last Admin: 10/06/16 09:24 Dose: 1 tab Cyanocobalamin (Vitamin B-12) 1,000 mcg PO DAILY [facility] Stop: 11/05/16 09:01 Last Admin: 10/06/16 09:25 Dose: 1,000 mcg Enoxaparin Sodium (Lovenox) 30 mg SC Q24H [facility] Stop: 11/04/16 17:01 Last Admin: 10/05/16 17:40 Dose: 30 mg Gabapentin (Neurontin) 300 mg PO [facility] Stop: 11/04/16 21:01 Last Admin: 10/05/16 20:44 Dose: 300 mg Ceftriaxone Sodium 1,000 mg/ (Dextrose/Water) 100 mls @ 200 mls/hr IV Q24H [facility] PRN Reason: Protocol Stop: 11/04/16 17:01 Last Infusion: 10/05/16 18:38 Dose: Infused Sodium Chloride (Sodium Chloride 0.9%) 1,000 mls @ 50 mls/hr IV .Q20H PRN PRN Reason: HYDRATION Stop: 11/05/16 02:11 Last Infusion: 10/06/16 10:00 Dose: 50 mls/hr Insulin Glargine (Lantus) 15 units SC [facility] Stop: 11/04/16 21:26 Last Admin: 10/05/16 21:36 Dose: 15 units Insulin Human Lispro (Humalog) 0 units SC [facility] PRN Reason: Protocol Stop: 11/05/16 07:01 Last Admin: 10/06/16 11:57 Dose: 6 units Metoprolol Tartrate (Lopressor) 25 mg PO BID [facility] Stop: 11/04/16 21:01 Last Admin: 10/06/16 09:25 Dose: 25 mg Mirtazapine (Remeron) 15 mg PO HS [facility] Stop: 11/04/16 21:01 Last Admin: 10/05/16 20:44 Dose: 15 mg Pantoprazole Sodium (Protonix) 40 mg PO DAILY@0700 [facility] Stop: 11/05/16 07:01 Last Admin: 10/06/16 06:46 Dose: 40 mg Prednisone (Prednisone) 40 mg PO DAILY [facility] Stop: 10/10/16 20:31 Last Admin: 10/06/16 09:25 Dose: 40 mg Saccharomyces Boulardii (Florastor) 250 mg PO BID [facility] Stop: 11/04/16 21:31 Last Admin: 10/06/16 09:25 Dose: 250 mg Senna/Docusate Sodium (Senokot-S) 1 tab PO BID [facility] Stop: 11/04/16 21:01 Last Admin: 10/06/16 09:25 Dose: 1 tab Physical Examination - Exam Narrative: Gen: A&Ox3, NAD MSK: LUE--> TTP over lateral aspect of elbow diffusely, mild pain with flexion/ extension and pronation/supination, mild effusion noted, no increased warmth or erythema. TTP over dorsum of wrist, mild pain with flexion/extension and pronation/supination, mild wrist effusion noted. No warmth or erythema. Results reviewed: Plain films of the elbow demonstrate chondrocalcinosis concerning for pseudogout , no fracture appreciated. Plain films of the wrist demonstrate significant osteoarthritic change with chondrocalcinosis. Uric acid - 10.6 ESR - 92 CRP - 6.7 Vital Signs: Vital Signs - Last Taken Temp 36.5 C 10/06/16 06:44 Pulse 60 10/06/16 11:09 Resp 18 10/06/16 06:44 BP 137/56 10/06/16 09:25 Pulse Ox 94 10/06/16 06:44 O2 Oxygen Delivery Method Room Air - Results and Findings: Narrative: Assessment: 86 yo F w/ L elbow and wrist pain. Her exam, imaging, and lab values are consistent with possible gout vs pseudogout flare. I am not concerned for an infectious etiology at this time based on her exam and imaging. Her elevated inflammatory markers are consistent with UTI and gout/ pseudogout flare. Recommend continue medical management at this time. Recommend indomethacin or colchicine if not contraindicated and possible allopurinol for gout. Will continue to follow clinically and if patient does not improve, we can consider joint aspiration and corticosteroid injection. Plan: - Recommend continue medical management at this time. - Recommend indomethacin or colchicine if not contraindicated and possible allopurinol for gout. - Will continue to follow clinically and if patient does not improve, we can consider joint aspiration and corticosteroid injection. Lab/Microbiology results last 24 hrs: Abnormal/Pending Laboratory Last 24 HRS 10/06/16 10/06/16 10/05/16 05:10 05:10 19:35 RBC 3.25 L Hgb 9.5 L Hct 30.0 L MCHC 31.7 L RDW 14.6 H Neutrophils % (Manual) 86 H Lymphocytes % (Manual) 9 L Lymphocytes # (Manual) 0.5 L ESR Est GFR (Non-Af Amer) 40 L Random Glucose 188 H D Lactate Dehydrogenase Troponin I 0.180 H* C-Reactive Prot, Quant 10/05/16 10/05/16 17:10 17:10 RBC Hgb Hct MCHC RDW Neutrophils % (Manual) Lymphocytes % (Manual) Lymphocytes # (Manual) ESR 92 H Est GFR (Non-Af Amer) Random Glucose Lactate Dehydrogenase 235 H Troponin I C-Reactive Prot, Quant 6.7 H - Assessments/Findings (1) Left arm pain Problem: Acute (2) Left leg swelling Problem: Acute
--- NOTE | 2016-10-06 13:16 | DS ---
(1) Weakness generalized Diagnosis(s): deconditioning/dehydration Problem: Acute (2) Pain, joint, forearm, left Diagnosis(s): elbow and wrist joint pains- gout/pseudogout . Problem: Acute (3) Elevated troponin Diagnosis(s): trended down. likely renal related. Problem: Acute (4) Elevated uric acid in blood Diagnosis(s): gout/pseudogout. positive chondrocalcinosis on xrays. Problem: Acute (5) Left leg swelling Diagnosis(s): negative DVT. positive popliteal cyst. Problem: Acute (6) UTI (urinary tract infection) Diagnosis(s): Gram Negative bacilli UTI. final results pending. Problem: Acute Qualifiers: Urinary tract infection type: acute cystitis Hematuria presence: with hematuria Qualified Code(s): N30.01 - Acute cystitis with hematuria Description of Stay: Romy Low, is an 86 year old female patient with a PMH of CAD (s/p CABG 2013), afib (on amiodarone, history of MAZE procedure), Bi-V pacemaker, DM, HTN , HLD who presented to the ER with c/o weakness. close family member on wednesday. ER eval revealed wbc wnl with 76% neutrophils, NA+ 143, creatinine 143, BNP 2637, troponin 0.2, UA positive for infection (+blood, + nitrate, 500 leuk esterase, 25-50 wbc, 4+ bacteria). pt denied any cp or angina equivalent symptoms. admits to very poor oral intake for past 4 days. uric acid elevated at 10.6 with no history gout. c/o left arm pain from elbow to wrist. c/o left leg pain and swelling from left knee down. left arm doppler negative for dvt. chest xray neg for acute abnormality. pt was admitted for uti, weakness, elevated troponin with history cad. Her troponin trended down. Her ESR /CRP and Uric acid were elevated with joint xray of involved extremities showed chodrocalcinosis/ calcium pyrophosphate deposition. Her elbow was the most painful and there was a suspicion of healing fracture of the radial head. Orthopedics was consulted and felt there was no fracture. Her US showed no DVT's but showed a cyst in her popliteal area. PT evaluated her and she ambulated in the hallway. She is stable to be discharged today and will keep her on prednisone for two more days for acute inflammation and start her on prophylactic colchicine and allopurinol on Wednesday. Will continue with her home medications. Procedures Performed: none Discharge Disposition: Home self care Disposition: Home self-care Condition: Fair Discharge Activity: Activity as tolerated Discharge Diet: Low salt, Low fat/chol Referrals: Elia Marcos MD [Primary Care Provider] - Problem Oriented Discharge Instructions to Patient/Family: Gout, [id number], Urinary Tract Infection, Adult, [id number] Additional Patient Instructions (free text): Has [facility] ongoing, please fax them discharge information. Follow up with PCP in [address] Marcos 10/13 at 11:15 Take Prednisone 40mg on Wednesday and 40mg on and then stop. Don't start until Wednesday to take your Allopurinol and Colchicine. Prescriptions (Any new or edited meds): Allopurinol [Zyloprim] 200 mg PO DAILY #60 tablet Cephalexin 500 mg PO BID #10 capsule Colchicine 0.6 mg PO DAILY #30 tablet Pantoprazole Sodium [Protonix] 40 mg PO DAILY@0700 #7 tablet. Tramadol HCl [Rybix Odt] 50 mg PO Q4H #60 tab.rapdis predniSONE [Prednisone] 40 mg PO DAILY #4 tablet Complete Home Medications List: Complete Home Medication List: Acetaminophen [Acetaminophen Extra Strength] 500 mg PO BID 11/11/13 Furosemide [Lasix] 40 mg PO BID 11/11/13 Gabapentin 300 mg PO HS 11/11/13 Amiodarone HCl [Pacerone] 100 mg PO DAILY 04/07/14 Aspirin/Calcium Carbonate/Mag [Aspirin Buffered 325 mg Tab] 325 mg PO DAILY Insulin Glargine,Hum.rec.anlog [Lantus] 15 units SQ HS 04/07/14 Insulin Lispro [Humalog] 0 - 12 units SQ ACHS PRN 04/07/14 Potassium Chloride [Klor-Con M20] 10 meq PO BID 04/07/14 Simvastatin [Zocor] 20 mg PO HS 04/08/14 Cyanocobalamin [Vitamin B-12] 1,000 mcg PO DAILY #30 tablet 04/09/14 Mirtazapine [Remeron] 15 mg PO HS 04/09/14 traMADol HCL [Ultram] 50 mg PO Q4H PRN 04/09/14 Metoprolol Tartrate [Lopressor] 25 mg PO BID 08/10/14 Sennosides/Docusate Sodium [Senokot-S] 1 tab PO BID 08/10/14 Alprazolam [Xanax] 0.25 mg PO PRN PRN 10/05/16 Calcium Carbonate/Vitamin D3 [Calcium 600 + Vit D 400 Softgl] 1 each PO DAILY Allopurinol [Zyloprim] 200 mg PO DAILY #60 tablet 10/06/16 Cephalexin 500 mg PO BID #10 capsule 10/06/16 Colchicine 0.6 mg PO DAILY #30 tablet 10/06/16 Pantoprazole Sodium [Protonix] 40 mg PO DAILY@0700 #7 tablet. 10/06/16 Tramadol HCl [Rybix Odt] 50 mg PO Q4H #60 tab.rapdis 10/06/16 predniSONE [Prednisone] 40 mg PO DAILY #4 tablet 10/06/16
[2016-10-06] MEDS ORDERED: INSULIN GLARGINE,HUM.REC.ANLOG 100 UNITS/ML VIAL SC SCH (21:00)
== END 2016-10-06 14:55 | disposition home health service (06) ==
LOC: ER 12:23 → MS 15:48
PROVIDERS: ADMIT Nurse Practitioner Critical Care Medicine; ATTEND Internal Medicine
PROC: 0T9B7ZZ Drainage of Bladder, Via Natural or Artificial Opening (ICD-10-PCS; principal; 2016-10-05)
DX: N39.0 Urinary tract infection, site not specified (principal); B96.89 Other specified bacterial agents as the cause of diseases classified elsewhere; E86.0 Dehydration; I50.9 Heart failure, unspecified; I10 Essential (primary) hypertension; E11.9 Type 2 diabetes mellitus without complications; Z79.4 Long term (current) use of insulin; M11.262 Other chondrocalcinosis, left knee; I48.2 Chronic atrial fibrillation; E78.5 Hyperlipidemia, unspecified; M79.602 Pain in left arm
CPT/HCPCS: 36415; 51701; 71020; 73080; 73110; 73562; 80048; 80053; 81001; 82009; 83615; 83880; 84484; 84550; 85007; 85025; 85610; 85652; 85730; 86140; 87040; 87077; 87086; 87186; 93005; 93971; 96365; 96367; 96372; 96375; 97161; 97165; 97535; 99284; G0378; G8978; G8979; G8980; G8987; G8988; G8989

== ENCOUNTER 2017-02-08 16:35 | Observation (INO) | payer MEDICARE, BC ==
[2017-02-08 16:57] LABS: Urine Bilirubin Negative (NEGATIVE); Urine Blood Negative /ul (NEGATIVE); Urine Ketone Negative (NEGATIVE); Urine Nitrite Negative (NEGATIVE); Urine Protein Negative (NEGATIVE); Urine Urobilinogen Normal (NORMAL); Urine pH 5.5 pH (5.0-7.0)
[2017-02-08 17:07] LABS: Hematocrit 27.7 % (37.0-47.0); Hemoglobin 9.2 gm/dL (12.5-16.0); Mean Corpuscular Hemoglobin 30.9 pg (27-31); Mean Corpuscular Hgb Conc 33.2 g/dl (32-36); Mean Platelet Volume 12.8 fl (6.0-9.5); Neutrophil # 5.6 K/mm3 (1.3-6.0); Neutrophil % 78.5 % (42-75.0); Platelet Count 128 K/mm3 (150-450); Red Blood Count 2.98 M/mm3 (4.2-5.4); Red Cell Distribution Width 16.7 % (11.5-14.0); White Blood Count 7.1 K/mm3 (4.0-10.5)
[2017-02-08 17:12] LABS: Urine Appearance Clear; Urine Bacteria TRACE; Urine Color Yellow; Urine RBC None Seen /hpf (0-5); Urine WBC None Seen /hpf (0-5)
[2017-02-08 17:26] LABS: Albumin * 3.2 gm/dl (3.4-5.0); Anion Gap 14.6 mmol/L (6.8-13.8); Bilirubin, Total 0.5 mg/dL (0.0-1.1); Ca. Corrected For Albumin 9.5 mg/dL (8.4-10.2); Calcium * 9.2 mg/dL (7.9-10.9); Carbon Dioxide 22.2 mmol/L (24-32.6); Potassium 4.8 mmol/L (3.4-4.6); Total Protein 6.3 gm/dL (6.2-8.2)
[2017-02-08 17:29] LABS: Troponin I 0.229 ng/ml (0.00-0.10)
[2017-02-08] MEDS ORDERED: ASPIRIN 81 MG TAB.CHEW ONE (17:35)
[2017-02-08] MEDS ORDERED: ASPIRIN 81 MG TAB.CHEW PO ONE (17:35)
--- NOTE | 2017-02-08 18:24 | ERNOTE ---
Medical Problem HPI - Narrative Date of Service: 02/08/17 - General Chief Complaint: General Assessment Time Seen by Provider: 02/08/17 16:47 Source: patient Exam Limitations: no limitations - Immun/Allergies/Home Medications Immunizations: IMMUNIZATION HX Immunizations Up to Date Yes History of Influenza Vaccine Yes Hx Pneumococcal Vaccination Yes Allergies/Adverse Reactions: Allergies acetaminophen [From [place]] Adverse Reaction (Verified 10/05/16 12:56) Makes weak, and "tipsy" hydrocodone bitartrate [From [place]] Adverse Reaction (Verified 10/05/16 12:56) Makes weak, and "tipsy" Home Medications: HOME MEDICATIONS Acetaminophen [Acetaminophen Extra Strength] 500 mg PO BID 11/11/13 [Last Taken Unknown] Furosemide [Lasix] 40 mg PO BID 11/11/13 [Last Taken Unknown] Gabapentin 300 mg PO HS 11/11/13 [Last Taken Unknown] Amiodarone HCl [Pacerone] 100 mg PO DAILY 04/07/14 [Last Taken Unknown] Aspirin/Calcium Carbonate/Mag [Aspirin Buffered 325 mg Tab] 325 mg PO DAILY [Last Taken Unknown] Insulin Glargine,Hum.rec.anlog [Lantus] 15 units SQ HS 04/07/14 [Last Taken Unknown] Insulin Lispro [Humalog] 0 - 12 units SQ ACHS PRN 04/07/14 [Last Taken Unknown] Potassium Chloride [Klor-Con M20] 10 meq PO BID 04/07/14 [Last Taken Unknown] Simvastatin [Zocor] 20 mg PO HS 04/08/14 [Last Taken Unknown] Mirtazapine [Remeron] 30 mg PO HS 04/09/14 [Last Taken Unknown] Metoprolol Tartrate [Lopressor] 25 mg PO BID 08/10/14 [Last Taken Unknown] Sennosides/Docusate Sodium [Senokot-S] 1 tab PO BID 08/10/14 [Last Taken Unknown ] Alprazolam [Xanax] 0.25 mg PO PRN PRN 10/05/16 [Last Taken Unknown] Allopurinol [Zyloprim] 200 mg PO DAILY #60 tablet 10/06/16 [Last Taken Unknown] Colchicine 0.6 mg PO DAILY #30 tablet 10/06/16 [Last Taken Unknown] Famotidine [Pepcid AC] 20 mg PO DAILY 02/08/17 [Last Taken Unknown] Lisinopril [Zestril] 10 mg PO DAILY 02/08/17 [Last Taken Unknown] - History of Present History Narrative: Patient presents to the ED with generalized weakness. She relates that she has not felt well for a couple of weeks. She is becoming increasingly weak. She feels like her legs go out from under her. No CP or SOB. No abdominal pain. She has chronic low back pain but nothing acute. No JAIN. no focal weakness. She states she hasn't been eating well. no vomiting. nothing really makes this better or worse. Timing: other - fluctuating intensity Modifying Factors - (Improves): Present: other - nothing Modifying Factors - (Worsens): Present: other - nothing Review of Systems - Review of Systems Constitutional: Absent: fever Respiratory: Absent: shortness of breath Cardiology: Absent: chest pain Gastrointestinal/Abdominal: Absent: abdominal pain Genitourinary: Absent: dysuria All Other Systems: All systems neg except as marked - Patient's Past Medical History Patient History - Medical: Anemia, Chronic Pain, Diabetes Type 2 Insulin Dependent Patient History - Cardiac/Respiratory: Atrial Fibrillation, Coronary Heart Disease, CHF, Hypertension, Hyperlipidemia, Myocardial Infarction Patient History - Cancer: No Hx of Cancer Patient History - Surgical Procedures: Coronary Bypass Surgery, Hysterectomy, Pacemaker, T & A, Other Patient History - Other: None LMP (females 10-50): Menopausal - Family History Mother Family History - Medical: Family History - Cardiac/Respiratory: No pertinent hx Family History - Cancer: No pertinent family hx Father Family History - Medical: Family History - Cardiac/Respiratory: Cardiac Arrest, Myocardial Infarction Family History - Cancer: No pertinent family hx - Social History Living Situations: assisted living Abuse History: No History of abuse Psych History: No pertinent hx Smoking Status: Never smoker Alcohol Use: none Drug Use: none - Immunizations Immunizations Up to Date: Yes Hx Pneumococcal Vaccination: Yes History of Influenza Vaccine: Yes Physical Exam - Physical Exam General Appearance: Present: alert, no apparent distress Head Exam: Present: normal inspection, no evidence of injury Eye Exam: Normal inspection: bilateral, PERRL: bilateral Ears, Nose, Throat: Present: normal ENT inspection Neck: Present: normal inspection Respiratory: Present: no respiratory distress, no accessory muscle use, lungs clear Cardiovascular/Chest: Present: regular rate, rhythm, normal peripheral pulses Gastrointestinal/Abdominal: Present: normal bowel sounds, nontender, soft. Absent: tenderness Back Exam: Absent: CVA tenderness (R), CVA tenderness (L) Extremity Exam: Present: other - no deformity Neurological Exam: Present: alert, normal mood/affect, other - generalized weakness. No focal unilateral motor or sensory deficits. Skin Exam: Present: normal color, warm/dry ED Progress - Results and Orders Patient's Lab Results:: I have reviewed the patient's lab results. - Vital Signs Patient's Vital Signs:: I have reviewed the patient's vital signs. Vital Signs: Vital Signs 02/08/17 02/08/17 02/08/17 16:39 16:58 17:13 Temperature 37.3 C Pulse Rate 60 60 64 Respiratory 19 22 H 25 H Rate Blood Pressure 119/41 102/39 104/37 O2 Sat by Pulse 95 96 96 Oximetry 02/08/17 18:01 Temperature Pulse Rate 60 Respiratory 16 Rate Blood Pressure 111/40 O2 Sat by Pulse 97 Oximetry - EKG EKG read: Interp. by me EKG Comments: Paced. No clear evidence of STEMI. - X-Ray X-Ray #1 X-Ray: chest Interpretation: Interp. by me X-ray Comments: I reviewed official radiology report - Progress/Reassessment Chief Complaint: General Assessment Progress Note-Subjective: 02/08/17 18:23 no evidence of stroke. Given ASA. D/W Hospitalist, Ceci Blanchard. She will admit for further evaluation and management Departure Clinical Impression: Generalized weakness, LALI (acute kidney injury), Elevated troponin - Departure Disposition: [facility] Condition: Stable Referrals: Elia Marcos MD [Primary Care Provider] -
[2017-02-08] MEDS: NORMAL SALINE 1,000 ML IV PRN (19:40)
[2017-02-08] MEDS ORDERED: FUROSEMIDE 10 MG/ML VIAL IV ONE (20:04)
[2017-02-08] MEDS ORDERED: METOLAZONE 5 MG TABLET PO ONE (20:05)
--- NOTE | 2017-02-08 20:09 | HP ---
Chief Complaint - Chief Complaint Date of Service: 02/08/17 Time of Service: 20:02 Chief Complaint: " Weakness, Loose stools, no appetite". Source pf HPI- Pt; reliable, ERP provider report. pt's daughter Maeve History of Present Illness: Mrs. Low is a 86-yr-old [place] pt of Dr. Elia Schuster with a PMH of: Anemia , Arthritis, A-fib, CHF, CAD, DM II, GERD, HTN, HLD, MD, and Uterine Prolapse. Pt reports that she has been feeling weaker for the last 2 days and today was the worst. She has noticed that she gets WATTS. Daughter at bedside admits that pt is on Lasix but has been skipping her doses due to frequent urination. Pt reports having diarrhea this morning once and has had no appetite for the whole day. She denies fevers, chills, coughing, n/v and abdominal pain. At the ED, the CXR had findings concerning for fluid overload/CHF. Labwork was remarkable for BUN/CR of 61/2.26, BNP of 2465. She will be admitted under observation for CHF exacerbation and LALI. - Patient's Past Medical History Patient History - Medical: Anemia, Chronic Pain, Diabetes Type 2 Insulin Dependent Patient History - Cardiac/Respiratory: Atrial Fibrillation, Coronary Heart Disease, CHF, Hypertension, Hyperlipidemia, Myocardial Infarction Patient History - Cancer: No Hx of Cancer Patient History - Surgical Procedures: Coronary Bypass Surgery, Hysterectomy, Pacemaker, T & A, Other Patient History - Other: None LMP (females 10-50): Menopausal - Family History Mother Family History - Medical: Family History - Cardiac/Respiratory: No pertinent hx Family History - Cancer: No pertinent family hx Father Family History - Medical: Family History - Cardiac/Respiratory: Cardiac Arrest, Myocardial Infarction Family History - Cancer: No pertinent family hx - Social History Living Situations: assisted living Abuse History: No History of abuse Psych History: No pertinent hx Smoking Status: Never smoker Alcohol Use: none Drug Use: none - Immunizations Immunizations Up to Date: Yes Hx Pneumococcal Vaccination: Yes History of Influenza Vaccine: Yes Review Of Systems (GEN) - Review of Systems Generalized/Overall Review: Present: Weakness, Chills, Malaise. Absent: Fever, Diaphoresis EENTM: Absent: Eye Pain, Blurred Vision, Double Vision, Mouth Swelling Respiratory: Present: Shortness of Breath - with exertion. Absent: Cough Cardiac: Absent: Chest Pain, Edema, Palpitations, Syncope Abdominal: Present: Nausea, Diarrhea. Absent: Vomiting, Hematemesis, Abdominal Pain, Constipation Genitourinary: Absent: Burning, Itching, Urgency, Frequency Musculoskeletal: Absent: Joint Pain, Back Pain Neurological: Present: Anxiety, Depressed, Weakness. Absent: Headache Skin: Present: Dryness. Absent: Bruising Endocrine: Present: Intolerance to Cold. Absent: Increased Hunger, Flushing, Increased Thirst Misc: All systems neg except as marked Immunizations: IMMUNIZATION HX Immunizations Up to Date Yes History of Influenza Vaccine Yes Hx Pneumococcal Vaccination Yes Allergies/Adverse Reactions: Allergies Allergy/AdvReac Type Severity Reaction Status Date / Time acetaminophen [From [place]] AdvReac Verified 10/05/16 12:56 hydrocodone bitartrate AdvReac Verified 10/05/16 12:56 [From [place]] Home Medications: HOME MEDICATIONS Acetaminophen [Acetaminophen Extra Strength] 500 mg PO BID PRN 11/11/13 [Last Taken Unknown] Furosemide [Lasix] 40 mg PO BID 11/11/13 [Last Taken Unknown] Gabapentin 300 mg PO HS 11/11/13 [Last Taken Unknown] Amiodarone HCl [Pacerone] 200 mg PO DAILY 04/07/14 [Last Taken Unknown] Aspirin/Calcium Carbonate/Mag [Aspirin Buffered 325 mg Tab] 325 mg PO DAILY [Last Taken Unknown] Insulin Glargine,Hum.rec.anlog [Lantus] 15 units SQ HS 04/07/14 [Last Taken Unknown] Insulin Lispro [Humalog] 0 - 12 units SQ ACHS PRN 04/07/14 [Last Taken Unknown] Potassium Chloride [Klor-Con M20] 10 meq PO BID 04/07/14 [Last Taken Unknown] Simvastatin [Zocor] 20 mg PO HS 04/08/14 [Last Taken Unknown] Mirtazapine [Remeron] 30 mg PO HS 04/09/14 [Last Taken Unknown] Metoprolol Tartrate [Lopressor] 25 mg PO BID 08/10/14 [Last Taken Unknown] Alprazolam [Xanax] 0.25 mg PO PRN PRN 10/05/16 [Last Taken Unknown] Colchicine 0.6 mg PO DAILY #30 tablet 10/06/16 [Last Taken Unknown] Allopurinol [Zyloprim] 100 mg PO DAILY 02/08/17 [Last Taken Unknown] Famotidine [Pepcid AC] 20 mg PO DAILY 02/08/17 [Last Taken Unknown] Lisinopril [Zestril] 10 mg PO DAILY 02/08/17 [Last Taken Unknown] Exam - Exam Vital Signs: Vital Signs - Last Taken Temp 37.3 C 02/08/17 16:39 Pulse 62 02/08/17 18:32 Resp 20 02/08/17 18:32 BP 116/47 02/08/17 18:32 Pulse Ox 97 02/08/17 18:32 Constitutional: Present: Alert, Oriented x3, Cooperative, Mild distress, Elderly ENT Exam: Present: normal ENT inspection, dry mucous membranes. Absent: nasal congestion, nasal drainage Eye Exam: bilateral eye: normal inspection, PERRL Neck: Present: non-tender, full range of motion, supple Back Exam: Present: normal inspection, no CVA tenderness Respiratory: Present: no accessory muscle use, No rales, No wheezing Cardiovascular/Chest: Present: regular rate, rhythm, no chest tenderness, no murmur Abdomen: Present: Normal bowel sounds, soft, nontender /Rectal: Present: Exam deferred Extremity: Present: normal range of motion, non-tender, normal inspection Skin Exam: Present: warm/dry, no cyanosis Neurologic: Present: no motor/sensory deficits, alert, normal mood/affect Appearance: Present: appropriate appearance, appropriate insight Eye contact: Present: cooperative, good eye contact, normal speech Thoughts: Present: normal thought pattern, no apparent hallucination Diagnostic Studies: Laboratory Results WBC 7.1 K/mm3 (4.0-10.5) 02/08/17 17:06 RBC 2.98 M/mm3 (4.2-5.4) L 02/08/17 17:06 Hgb 9.2 gm/dL (12.5-16.0) L 02/08/17 17:06 Hct 27.7 % (37.0-47.0) L 02/08/17 17:06 MCV 93.0 fl (78-100) 02/08/17 17:06 MCH 30.9 pg (27-31) 02/08/17 17:06 MCHC 33.2 g/dl (32-36) 02/08/17 17:06 RDW 16.7 % (11.5-14.0) H 02/08/17 17:06 Plt Count 128 K/mm3 (150-450) L 02/08/17 17:06 MPV 12.8 fl (6.0-9.5) H 02/08/17 17:06 Immature Gran % (Auto) 0.40 % (0.001-0.429) 02/08/17 17:06 Immature Gran # (Auto) 0.03 K/mm3 (0.000-0.0310) 02/08/17 17:06 Neutrophils % 78.5 % (42-75.0) H 02/08/17 17:06 Lymphocytes % 14.2 % (20-51) L 02/08/17 17:06 Monocytes % 6.2 % (0.0-9) 02/08/17 17:06 Eosinophils % 0.0 % (0.0-3.0) 02/08/17 17:06 Basophils % 0.7 % (0.0-1.0) 02/08/17 17:06 Nucleated RBC % 0.0 k/mm3 (0-1) 02/08/17 17:06 Neutrophils # 5.6 K/mm3 (1.3-6.0) 02/08/17 17:06 Lymphocytes # 1.0 k/mm3 (1.5-3.5) L 02/08/17 17:06 Monocytes # 0.4 k/mm3 (0.0-1.0) 02/08/17 17:06 Eosinophils # 0.0 k/mm3 (0.0-0.7) 02/08/17 17:06 Absolute Basophils 0.1 k/mm3 (0.0-0.1) 02/08/17 17:06 Sodium 139 mmol/L (132-142) 02/08/17 17:06 Plasma Sodium 140 mmol/L (130-142) 02/08/17 17:06 Potassium 4.8 mmol/L (3.4-4.6) H 02/08/17 17:06 Chloride 107 mmol/L (97-106) H 02/08/17 17:06 Carbon Dioxide 22.2 mmol/L (24-32.6) L 02/08/17 17:06 Anion Gap 14.6 mmol/L (6.8-13.8) H 02/08/17 17:06 BUN 61 mg/dL (3-23) H D 02/08/17 17:06 Creatinine 2.26 mg/dL (0.4-1.4) H D 02/08/17 17:06 Est GFR (Non-Af Amer) 22 mL/min (60-130) L D 02/08/17 17:06 BUN/Creatinine Ratio 27.0 (9.0-21.6) H 02/08/17 17:06 Random Glucose 146 mg/dL (70-110) H 02/08/17 17:06 Lactic Acid, Venous 1.7 mmol/L (0.4-1.9) 02/08/17 17:06 Calcium 9.2 mg/dL (7.9-10.9) 02/08/17 17:06 Calcium Adj for Albumin 9.5 mg/dL (8.4-10.2) 02/08/17 17:06 Total Bilirubin 0.5 mg/dL (0.0-1.1) 02/08/17 17:06 AST 33 U/L (0-48) 02/08/17 17:06 ALT 38 U/L (19-67) 02/08/17 17:06 Alkaline Phosphatase 127 U/L (50-170) 02/08/17 17:06 Troponin I 0.229 ng/ml (0.00-0.10) H* 02/08/17 17:06 B-Natriuretic Peptide 2465 pg/mL (5-550) H 02/08/17 17:06 Total Protein 6.3 gm/dL (6.2-8.2) 02/08/17 17:06 Albumin 3.2 gm/dl (3.4-5.0) L 02/08/17 17:06 Urine Color Yellow 02/08/17 16:53 Urine Appearance Clear 02/08/17 16:53 Urine pH 5.5 pH (5.0-7.0) 02/08/17 16:53 Ur Specific [place] 1.010 SP.GR. (1.005-1.010) 02/08/17 16:53 Urine Protein Negative mg/dL (NEGATIVE) 02/08/17 16:53 Urine Glucose (UA) Negative mg/dL (NEGATIVE) 02/08/17 16:53 Urine Ketones Negative mg/dL (NEGATIVE) 02/08/17 16:53 Urine Blood Negative /ul (NEGATIVE) 02/08/17 16:53 Urine Nitrate Negative (NEGATIVE) 02/08/17 16:53 Urine Bilirubin Negative mg/dl (NEGATIVE) 02/08/17 16:53 Urine Urobilinogen Normal EU/dl (NORMAL) 02/08/17 16:53 Ur Leukocyte Esterase Negative /ul (NEGATIVE) 02/08/17 16:53 Urine RBC None seen /hpf (0-5) 02/08/17 16:53 Urine WBC None seen /hpf (0-5) 02/08/17 16:53 Ur Epithelial Cells None seen /hpf (0-5) 02/08/17 16:53 Urine Bacteria Trace (NONE) 02/08/17 16:53 Urine Culture Comments Culture to follow 02/08/17 16:53 Assessment/Plan - Assessment/Plan (1) LALI (acute kidney injury) Assessment: Likely due to decreased oral intake and diarrhea. will bolus with 1 L of IVF. BMP in am. Problem: Acute (2) CHF exacerbation Assessment: The CXR had findings of fluid overload and reports SOB only with exertion. No sign of peripehral edema. Has not been compliant with taking her diuretics. No lasix given at the ED, therefore will give Lasix 80 IVP X 1 tonght, monitor strict I/O, daily wt, and electrolyte and kidney function. Problem: Acute (3) Weakness generalized Assessment: Would like [facility] PT at discharge. Will make arrangements. Problem: Acute (4) Elevated troponin Assessment: No associated symptoms e.g chest pain, n/v, palpitation, diaphoresis. Is likely from her non MD causes such: CHF, Renal failure Problem: Chronic (5) Diabetes Assessment: stable; Accuchecks ACHS Consistent Carb diet. Problem: Chronic Qualifiers: Diabetes mellitus type: type 2 (6) A-fib Assessment: Stable- On Amiodarone & Metoprolol. Place on telemetry monitoring. Problem: Chronic (7) HLD (hyperlipidemia) Assessment: Stable - on Zocor. Problem: Chronic Qualifiers: (8) HTN (hypertension) Assessment: Stable- continue Lisinopril. Problem: Chronic Qualifiers:
[2017-02-08] MEDS ORDERED: ACETAMINOPHEN 500 MG TABLET PO PRN (22:09)
[2017-02-08] MEDS ORDERED: ALPRAZolam 0.25 MG TABLET PO PRN (22:09)
[2017-02-08] MEDS ORDERED: INSULIN LISPRO 100 UNITS/ML VIAL SC PRN (22:09)
[2017-02-08] MEDS: METOPROLOL TARTRATE 25 MG TABLET PO SCH (23:15)
[2017-02-08] MEDS: GABAPENTIN 300 MG CAPSULE PO SCH (23:15)
[2017-02-08] MEDS: SIMVASTATIN 20 MG TABLET PO SCH (23:15)
[2017-02-08] MEDS: INSULIN GLARGINE,HUM.REC.ANLOG 100 UNITS/ML VIAL SC SCH (23:16)
[2017-02-09 05:42] LABS: Hematocrit 26.5 % (37.0-47.0); Hemoglobin 8.6 gm/dL (12.5-16.0); Mean Cell Volume 93.6 fl (78-100); Mean Corpuscular Hemoglobin 30.4 pg (27-31); Mean Corpuscular Hgb Conc 32.5 g/dl (32-36); Mean Platelet Volume 13.6 fl (6.0-9.5); Neutrophil # 3.3 K/mm3 (1.3-6.0); Neutrophil % 67.8 % (42-75.0); Platelet Count 118 K/mm3 (150-450); Red Blood Count 2.83 M/mm3 (4.2-5.4); Red Cell Distribution Width 16.8 % (11.5-14.0); White Blood Count 4.9 K/mm3 (4.0-10.5)
[2017-02-09 06:13] LABS: Anion Gap 17.3 mmol/L (6.8-13.8); BUN/Creatinine Ratio 26.5 (9.0-21.6); Calcium * 9.3 mg/dL (7.9-10.9); Carbon Dioxide 20.8 mmol/L (24-32.6); Estimated Creat Clear 13.4; Potassium 4.1 mmol/L (3.4-4.6)
[2017-02-09] MEDS: COLCHICINE 0.6 MG TABLET PO SCH (09:08)
[2017-02-09] MEDS: AMIODARONE HCL 200 MG TABLET PO SCH (09:08)
[2017-02-09] MEDS: ASPIRIN 325 MG TABLET.DR PO SCH (09:08)
[2017-02-09] MEDS: ALLOPURINOL 100 MG TABLET PO SCH (09:16)
[2017-02-09] MEDS: FAMOTIDINE 20 MG TABLET PO SCH (09:16)
[2017-02-09] MEDS: METOPROLOL TARTRATE 25 MG TABLET PO SCH ×2 (09:16→21:38)
[2017-02-09] MEDS: LISINOPRIL 10 MG TABLET PO SCH (09:17)
--- NOTE | 2017-02-09 14:30 | PN ---
Progess Note - Interim Narrative: 02/09/17 14:29 Patient is still feeling weak especially her LE. Will get LS Xray and refer her to PT.
--- NOTE | 2017-02-09 17:37 | PN ---
Subjective - Date and Time Seen Date: 02/09/17 Time: 17:30 Subjective Narrative: She says she still feels weak especially her lower extremities. Objective - Review of Systems Generalized/Overall Review: Reports: Weakness. Denies: Chills, Fever EENTM: Reports: No Symptoms Reported Respiratory: Denies: Cough, Shortness of Breath Cardiac: Denies: Chest Pain, Edema, Palpitations Abdominal: Denies: Nausea, Vomiting Genitourinary Symptoms: Denies: Urgency, Frequency Musculoskeletal Complaints: Reports: Joint Pain, Back Pain - Vitals Vitals: Last Vital Signs Temp 36.4 C L 02/09/17 14:49 Pulse 60 02/09/17 16:12 Resp 18 02/09/17 14:49 BP 133/35 02/09/17 14:49 Pulse Ox 98 02/09/17 14:49 - Abnormal Lab Findings Abnormal Lab Findings: Abnormal Lab Results 02/09/17 02/09/17 02/09/17 Range/Units 00:20 05:10 05:10 RBC 2.83 L (4.2-5.4) M/mm3 Hgb 8.6 L (12.5-16.0) gm/dL Hct 26.5 L (37.0-47.0) % RDW 16.8 H (11.5-14.0) % Plt Count 118 L (150-450) K/mm3 MPV 13.6 H (6.0-9.5) fl Lymphocytes # 1.1 L (1.5-3.5) k/mm3 Sodium 144 H (132-142) mmol/L Plasma Sodium 145 H (130-142) mmol/L Chloride 110 H (97-106) mmol/L Carbon Dioxide 20.8 L (24-32.6) mmol/L Anion Gap 17.3 H (6.8-13.8) mmol/L BUN 63 H (3-23) mg/dL Creatinine 2.38 H (0.4-1.4) mg/dL Est GFR (Non-Af Amer) 21 L (60-130) mL/min BUN/Creatinine Ratio 26.5 H (9.0-21.6) Random Glucose 140 H (70-110) mg/dL Troponin I 0.219 H* (0.00-0.10) ng/ml - Exam Constitutional: Present: Alert, Oriented x3, Cooperative ENT Exam: Present: hearing grossly normal Neck: Present: supple Breasts: Present: Exam deferred Respiratory: Present: decreased breath sounds, rhonchi, No wheezing Cardiovascular/Chest: Present: no JVD, no murmur, irregularly irregular Abdomen: Present: Normal bowel sounds, soft, nontender, nondistended Extremity: Present: no pedal edema, no calf tenderness, other - positive soft tissue mass , left knee Assessment/Plan - Problems/Diagnosis (1) Weakness generalized Problem: Acute Narrative: more with lower extremities. will get LS xray and refer her to PT for evaluation. (2) A-fib Problem: Chronic (3) Elevated troponin Problem: Chronic (4) Back pain Problem: Chronic Qualifiers: Back pain location: low back pain (5) CRF (chronic renal failure) Problem: Chronic Qualifiers: Chronic kidney disease stage: stage 4 (severe) Qualified Code(s): N18.4 - Chronic kidney disease, stage 4 (severe) (6) Diabetes Problem: Chronic Qualifiers: Diabetes mellitus type: type 2 (7) HLD (hyperlipidemia) Problem: Chronic Qualifiers: Hyperlipidemia type: mixed hyperlipidemia Qualified Code(s): E78.2 - Mixed hyperlipidemia (8) HTN (hypertension) Problem: Chronic Qualifiers: Hypertension type: essential hypertension
[2017-02-09] MEDS: GABAPENTIN 300 MG CAPSULE PO SCH (21:38)
[2017-02-09] MEDS: INSULIN GLARGINE,HUM.REC.ANLOG 100 UNITS/ML VIAL SC SCH (21:38)
[2017-02-09] MEDS: SIMVASTATIN 20 MG TABLET PO SCH (21:39)
[2017-02-09] MEDS ORDERED: MIRTAZAPINE 15 MG TABLET PO SCH (22:30)
[2017-02-09] MEDS: NORMAL SALINE 1,000 ML IV PRN (22:34)
[2017-02-10 06:11] LABS: Hematocrit 24.9 % (37.0-47.0); Hemoglobin 8.2 gm/dL (12.5-16.0); Mean Cell Volume 92.6 fl (78-100); Mean Corpuscular Hemoglobin 30.5 pg (27-31); Mean Corpuscular Hgb Conc 32.9 g/dl (32-36); Mean Platelet Volume 13.8 fl (6.0-9.5); Neutrophil # 3.4 K/mm3 (1.3-6.0); Neutrophil % 64.1 % (42-75.0); Platelet Count 109 K/mm3 (150-450); Red Blood Count 2.69 M/mm3 (4.2-5.4); Red Cell Distribution Width 16.1 % (11.5-14.0); White Blood Count 5.3 K/mm3 (4.0-10.5)
[2017-02-10 06:18] LABS: Anion Gap 13.4 mmol/L (6.8-13.8); BUN/Creatinine Ratio 28.8 (9.0-21.6); Calcium * 9.2 mg/dL (7.9-10.9); Carbon Dioxide 22.1 mmol/L (24-32.6); Estimated Creat Clear 16.7; Potassium 4.5 mmol/L (3.4-4.6)
[2017-02-10] MEDS: NORMAL SALINE 1,000 ML IV PRN (06:44)
--- NOTE | 2017-02-10 07:51 | DS ---
(1) Weakness generalized Problem: Acute (2) A-fib Problem: Chronic (3) Elevated troponin Problem: Chronic (4) Back pain Problem: Chronic Qualifiers: Back pain location: low back pain (5) CRF (chronic renal failure) Problem: Chronic Qualifiers: Chronic kidney disease stage: stage 4 (severe) Qualified Code(s): N18.4 - Chronic kidney disease, stage 4 (severe) (6) Diabetes Problem: Chronic Qualifiers: Diabetes mellitus type: type 2 (7) HLD (hyperlipidemia) Problem: Chronic Qualifiers: Hyperlipidemia type: mixed hyperlipidemia Qualified Code(s): E78.2 - Mixed hyperlipidemia (8) HTN (hypertension) Problem: Chronic Qualifiers: Hypertension type: essential hypertension Qualified Code(s): I10 - Essential (primary) hypertension Description of Stay: jaquelin Low is a 86-yr-old female with a PMH of: Anemia, Arthritis, A-fib, CHF , CAD, DM II, GERD, HTN, HLD, NC, and Uterine Prolapse who was admitted on 2016 for weakness . She has been feeling weaker for the last 2 days and on the day of admission was the worst. She had noticed that she gets WATTS. Daughter at bedside admits that pt is on Lasix but has been skipping her doses due to frequent urination. She diarrhea on the morning of admission once and did not have appetite for the whole day. She denied fevers, chills, coughing, n/v and abdominal pain. At the ED, the CXR had findings concerning for fluid overload/ CHF. Labwork was remarkable for BUN/CR of 61/2.26, BNP of 2465. She was admitted for observation. She was given IV Lasix on admission. LS xray showed L1 anterior wedging of indeterminate age. She does not have a a h/o of recent trauma. PT was consulted. She is stable to be discharged today and order an outpatient MRI of her LS and an US of her left knee mass. Procedures Performed: none Discharge Disposition: Home self care Disposition: Home self-care Condition: Stable Discharge Diet: Consistent carbs [facility] Therapy: Physicial Therapy Referrals: Elia Marcos MD [Primary Care Provider] - Additional Patient Instructions (free text): Please make TCM appointment at discharge, if applicable. Thank you! Sima @ [phone]. Has [facility] ongoing, please call and fax discharge information to them. Follow up with PCP in 1 week Tcm appointment will be 2016 @ 1:00pm. with Dr. Barillas Schedule MRI of the LS spine ( L1 anterior wedging) and US of her Left lower extremity as an outpatient ( mass over posteromedial knee) Ultrasound appointment will be @ 8:00am. Prescriptions (Any new or edited meds): Acetaminophen [Tylenol] 500 mg PO QID PRN #90 tablet PRN Reason: Pain Complete Home Medications List: Complete Home Medication List: Gabapentin 300 mg PO HS 11/11/13 Amiodarone HCl [Pacerone] 200 mg PO DAILY 04/07/14 Aspirin/Calcium Carbonate/Mag [Aspirin Buffered 325 mg Tab] 325 mg PO DAILY Insulin Glargine,Hum.rec.anlog [Lantus] 15 units SQ HS 04/07/14 Insulin Lispro [Humalog] 0 - 12 units SQ ACHS PRN 04/07/14 Simvastatin [Zocor] 20 mg PO HS 04/08/14 Mirtazapine [Remeron] 30 mg PO HS 04/09/14 Metoprolol Tartrate [Lopressor] 25 mg PO BID 08/10/14 Alprazolam [Xanax] 0.25 mg PO PRN PRN 10/05/16 Colchicine 0.6 mg PO DAILY #30 tablet 10/06/16 Allopurinol [Zyloprim] 100 mg PO DAILY 02/08/17 Famotidine [Pepcid AC] 20 mg PO DAILY 02/08/17 Lisinopril [Zestril] 10 mg PO DAILY 02/08/17 Acetaminophen [Tylenol] 500 mg PO QID PRN #90 tablet 02/10/17
[2017-02-10] MEDS: AMIODARONE HCL 200 MG TABLET PO SCH (09:01)
[2017-02-10] MEDS: FAMOTIDINE 20 MG TABLET PO SCH (09:01)
[2017-02-10] MEDS: METOPROLOL TARTRATE 25 MG TABLET PO SCH (09:01)
[2017-02-10] MEDS: COLCHICINE 0.6 MG TABLET PO SCH (09:01)
[2017-02-10] MEDS: ALLOPURINOL 100 MG TABLET PO SCH (09:01)
[2017-02-10] MEDS: LISINOPRIL 10 MG TABLET PO SCH (09:01)
[2017-02-10] MEDS: ASPIRIN 325 MG TABLET.DR PO SCH (09:01)
[2017-02-10 10:59] VITALS: BP 154/51
== END 2017-02-10 13:45 | disposition home health service (06) ==
LOC: ER 16:35 → SUPCPDRO 16:35 → MS 18:10 → UNDOADMOB 18:10 → MS 02-10 14:26
PROVIDERS: ADMIT Nurse Practitioner Critical Care Medicine; ATTEND Internal Medicine
DX: N17.9 Acute kidney failure, unspecified (principal); I12.9 Hypertensive chronic kidney disease with stage 1 through stage 4 chronic kidney disease, or unspecified chronic kidney disease; N18.4 Chronic kidney disease, stage 4 (severe); R78.9 Finding of unspecified substance, not normally found in blood; R53.1 Weakness; E11.9 Type 2 diabetes mellitus without complications; Z79.4 Long term (current) use of insulin; I48.2 Chronic atrial fibrillation; M54.5 Low back pain; I10 Essential (primary) hypertension; E78.5 Hyperlipidemia, unspecified
CPT/HCPCS: 36415; 71020; 72110; 80048; 80053; 81001; 83605; 83880; 84484; 85025; 87081; 87086; 93005; 96372; 96374; 97116; 97161; 97530; 99284; G0378; G8978; G8979; G8980